=== PATIENT | male | born 1960 | race Caucasian/White ===

== ENCOUNTER 2017-11-30 14:51 | Emergency (ER) | payer OTHER, SELFPAY ==
[~2017-11-30] VITALS: Ht 182.9 cm; Wt 80.3 kg
[2017-11-30 14:54] VITALS: BP 137/85
[2017-11-30] MEDS ORDERED: FAMOTIDINE 20 MG TABLET PO ONE (15:00)
[2017-11-30] MEDS ORDERED: FAMOTIDINE 20 MG TABLET ONE (15:15)
== END 2017-11-30 15:58 | disposition home or self-care (01) ==
LOC: ED 15:30
DX: L03.116 Cellulitis of left lower limb (principal); L20.84 Intrinsic (allergic) eczema
CPT/HCPCS: 99284; J7512; Q0177